=== PATIENT | female | born 1955 | race African-American/Black ===

== ENCOUNTER → 2016-05-05 | Outpatient (CLI) | payer BC ==
[~2016-05-05] MED LIST: GLUCOPHAGE500 MG PO; NORCO 5-325 TA1 EACH PO
== END ==
LOC: RAD 09:44
DX: Z12.31 Encounter for screening mammogram for malignant neoplasm of breast (principal)

== ENCOUNTER → 2017-06-16 | Outpatient (CLI) | payer BC | LOC: RAD 11:32 | DX: Z12.31 Encounter for screening mammogram for malignant neoplasm of breast (principal) ==